=== PATIENT | male | born 1980 | race Caucasian/White ===

== ENCOUNTER 2020-07-13 23:56 | Emergency (ER) | payer SELFPAY ==
[~2020-07-13] VITALS: Ht 162.6 cm; Wt 88.5 kg
[2020-07-14 03:01] VITALS: BP 114/74
== END 2020-07-14 04:20 | disposition left against medical advice (07) ==
LOC: ER 07-14 00:02
DX: M54.5 Low back pain (principal); Z53.21 Procedure and treatment not carried out due to patient leaving prior to being seen by health care provider
CPT/HCPCS: 72100

== ENCOUNTER 2022-05-18 20:04 | Emergency (ER) | payer SELFPAY ==
[~2022-05-18] VITALS: Ht 165.1 cm; Wt 165.0 kg
[2022-05-19 02:15] VITALS: BP 112/78
[2022-05-19] MEDS ORDERED: IBUPROFEN 800 MG TAB PO ONE (02:15)
== END 2022-05-19 02:20 | disposition home or self-care (01) ==
LOC: ER 20:04 → EDBD 20:04 → ER 05-19 02:20
DX: M54.2 Cervicalgia (principal); M54.59 Other low back pain; V43.92XA Unspecified car occupant injured in collision with other type car in traffic accident, initial encounter; Y93.89 Activity, other specified; Y92.410 Unspecified street and highway as the place of occurrence of the external cause; Y99.8 Other external cause status
CPT/HCPCS: 70450; 71250; 72125; 74176